=== PATIENT | female | born 1985 | race Caucasian/White ===

== ENCOUNTER 2021-01-14 18:55 | Emergency (ER) | payer MEDICAID, OTHER ==
[~2021-01-14] VITALS: Ht 152.4 cm; Wt 58.0 kg
[2021-01-14] MEDS ORDERED: IBUPROFEN 600MG TABLET PO ONE (20:00)
[2021-01-14 21:18] VITALS: BP 116/76
== END 2021-01-14 21:20 | disposition home or self-care (01) ==
LOC: ER 18:55
DX: S10.83XA Contusion of other specified part of neck, initial encounter (principal); T71.193A Asphyxiation due to mechanical threat to breathing due to other causes, assault, initial encounter; S60.211A Contusion of right wrist, initial encounter; Y04.8XXA Assault by other bodily force, initial encounter; Y93.89 Activity, other specified; Y92.89 Other specified places as the place of occurrence of the external cause; Z86.011 Personal history of benign neoplasm of the brain
CPT/HCPCS: 70360; 73110; 99284